=== PATIENT | female | born 1960 | race Hispanic/Latino ===

== ENCOUNTER 2018-11-09 09:58 | Outpatient (CLI) | payer MEDICAID | END 2018-11-09 09:59 | disposition home or self-care (01) | LOC: RAD 09:58 ==

== ENCOUNTER 2019-01-12 14:57 | Outpatient (CLI) | payer MEDICAID | END 2019-01-12 14:58 | disposition home or self-care (01) | LOC: RAD 14:57 ==

== ENCOUNTER 2019-01-30 11:27 | Outpatient (CLI) | payer MEDICAID | END 2019-01-30 11:28 | disposition home or self-care (01) | LOC: RAD 11:27 ==